=== PATIENT | male | born 2005 | race Caucasian/White ===

== ENCOUNTER 2023-08-13 11:53 | Emergency (ER) | payer OTHER, SELFPAY ==
[2023-08-13 11:54] VITALS: BP 152/92; PULSE 99; RESP 18; TEMP 36.5; O2SAT 100; BMI 23.1
--- NOTE | 2023-08-13 12:11 | RAD_ITS ---
STUDY: X-RAY CHEST REASON FOR EXAM: Male, 18 years old. Chest Pain TECHNIQUE: PA and lateral views of the chest. COMPARISON: None. FINDINGS: The lungs are clear and expanded. Scattered calcified granulomas. There is no demonstrated pleural abnormality. Normal size heart. Normal mediastinum and angel. Normal visualized pulmonary arteries. Normal visualized aortic arch and descending thoracic aorta. Normal visualized thoracic spine. Normal visualized ribs, clavicles, and shoulders. There is no demonstrated abnormality of the visualized soft tissue structures of the upper abdomen. RAD/Chest PA and Lateral IMPRESSION: Normal x-ray examination of the chest. Electronically Signed: Sanford Bishop MD at 13:01 EDT ,
--- NOTE | 2023-08-13 12:41 | EDS_ITS ---
HPI <Analy Aden RN - Last Filed: 08/13/23 14:49> History of Present Illness Chief Complaint: Chest Other Informant: patient Onset/Context/Timing Onset: Days (6 days) Activity at onset: sudden Timing: Continuous Quality: Positive for Sharp Location: - (Left lower chest) Current Severity: 5/10 Maximum Severity: 5/10 Worsened By: Movement of Arm, Movement of Torso and Palpation Relieved By: Remaining Still Associated Symptoms: Negative for Nausea, Vomiting, Diaphoresis, Dyspnea, Cough, Fever, Lightheadedness or Palpitations Narrative Narrative: Patient is a 18-year-old male with no past medical history who presents to the ED from home for left lower chest pain starting 08/08/2023. Patient denies injury. He reports he was golfing that day. Pain began after golfing. He denies shortness of breath or palpitations. He reports taking Tylenol without relief. He also feels as if something is out of place. Pain is worse with movement and palpation. Patient reports recent travel to [place] via car returning back to [place] on 07/29/2023. He reports being seen by a chiropractor on 08/11/2023 with no relief of symptoms. He denies lightheadedness, dizziness, na usea, vomiting, and diarrhea. Denies radiation of pain. Patient also reports coolness to bilateral hands beginning today. He does report being outside for some time. Prior Similar Symptoms: No Recent Illness/Hospitalization: No CVD Risk Factors: Negative for Hypertension, Diabetes, Hypercholesterolemia, Family History 1' </=55 or Smoking PE Risk Factors: Positive for Recent Travel/Surgery; Negative for Recent Immobilization or Prior DVT or PE PFSH <Analy Aden RN - Last Filed: 08/13/23 14:49> PFSH Medical History no medical history no medical history Home Medications prednisone 10 mg tablet 10 mg PO UD #33 tabs 08/13/23 [Rx Last Taken Unknown] Allergy/AdvReac Type Severity Reaction Status Date / Time No Known Allergies Allergy Verified 08/13/23 11:54 Social History Smoking Status: Never smoker ROS <Analy Aden RN - Last Filed: 08/13/23 14:49> ROS ED Constitutional Constitutional ED: Denies chills, fever(s) or sweats Eyes Eyes: Denies change in vision ENT ENT ED: Reports rhinorrhea and other Details: Patient reports nasal congestion ; Denies sore throat Cardiovascular Cardiovascular: Reports as per HPI; Denies orthopnea, palpitations or racing heartbeat Respiratory/Chest Respiratory/Chest: Denies cough, dyspnea or orthopnea Gastrointestinal Gastrointestinal: Denies abdominal pain, diarrhea, nausea or vomiting Genitourinary Genitourinary ED: Denies dysuria, hematuria or urinary frequency Musculoskeletal Musculoskeletal: Denies arthralgias, back pain or myalgias Integumentary Denies rash Neurologic Neurologic: Denies headache(s), paresthesias or weakness EXAM <Analy Aden RN - Last Filed: 08/13/23 14:49> Physical Exam Narrative Exam Narrative: Patient is awake, alert, cooperative. Const Vital Signs: 08/13/23 11:54 08/13/23 13:54 Temperature 97.7 F L Temperature Source Temporal Pulse Rate 99 92 Respiratory Rate 18 18 Blood Pressure 152/92 H 137/84 H Blood Pressure Mean 112 101 Pulse Ox 100 97 Oxygen Delivery Method Room Air Room Air Positive well nourished and well developed General Appearance ED: well developed and NAD HEENT Reports moist mucous membranes normocephalic Eyes PERRL Neck no lymphadenopathy, supple and no JVD Chest Wall inspection of chest normal Chest Narrative: Tenderness to left lower chest with palpation. Patient describes sharp pain with palpation. Chest: tenderness Resp normal respiratory effort and clear to auscultation bilaterally Auscultation: Negative for rales, rhonchi or wheezes Cardio regular rate, regular rhythm, S1 normal heart sound and S2 normal heart sound Peripheral Pulses: pulses 2+ throughout GI normal to inspection, nondistended, normoactive bowel sounds and soft to palpation Back/Spine no thoracic nor lumbar tenderness Extremity normal to inspection General Extremety ED: Negative for edema General Extremity: Negative for edema Neuro oriented x3 Sensorium / Orientation: awake and alert Motor Exam: strength 5/5 throughout Psych mental status grossly normal Skin no rashes or lesions noted and no wounds Skin Narrative: Bilateral hands cool to touch. Cap refill 3 seconds. <Dr. Era Meraz MD - Last Filed: 08/13/23 15:22> Physical Exam Const Vital Signs: 08/13/23 11:54 08/13/23 13:54 Temperature 97.7 F L Temperature Source Temporal Pulse Rate 99 92 Respiratory Rate 18 18 Blood Pressure 152/92 H 137/84 H Blood Pressure Mean 112 101 Pulse Ox 100 97 Oxygen Delivery Method Room Air Room Air MDM <Analy Aden RN - Last Filed: 08/13/23 14:49> [facility] Narrative Medical decision making narrative: D-dimer ordered to rule out PE. Chest PA and lateral ordered to rule out fractures, dislocation, acute cardiopulmonary process. Lab Data Labs: Laboratory Results - last 24 hr 08/13/23 12:40 D-Dimer Quant (PE/DVT) 0.64 H* Radiography Diagnostic Testing: Clinical Impression(s) from Imaging Studies Chest X-Ray 08/13/23 12:11 IMPRESSION: Normal x-ray examination of the chest. Electronically Signed: Sanford Bishop MD at 13:01 EDT , Chest CTA 08/13/23 13:00 IMPRESSION: Normal CTA chest examination, without a demonstrated pulmonary embolism or arterial dissection. Electronically Signed: Sanford Bishop MD at 14:14 EDT , Differential Diagnosis Chest pain/SOB: pulmonary embolism and pneumonia Management Discussion w/another healthcare provider: Other (Dr Meraz, ED provider) Treatment and Re-Evaluation :: Lab work and imaging reviewed. Chest x-ray shows normal mediastinum, no cardiomegaly, no infiltrates. D-dimer is elevated. Therefore CTA of the chest was ordered to evaluate for pulmonary embolism. CTA negative for pulmonary embolism. Patient diagnosed with pleurisy and will be prescribed prednisone with first dose to be given in the ED. Lab work and imaging reviewed with patient. Patient to follow-up with PCP in 1 week if needed. Patient to return to ED for worsening or concerning symptoms. Patient agreeable with plan and to be discharged home. <Dr. Era Meraz MD - Last Filed: 08/13/23 15:22> [facility] Lab Data Labs: Laboratory Results - last 24 hr 08/13/23 12:40 D-Dimer Quant (PE/DVT) 0.64 H* Radiography Diagnostic Testing: Clinical Impression(s) from Imaging Studies Chest X-Ray 08/13/23 12:11 IMPRESSION: Normal x-ray examination of the chest. Electronically Signed: Sanford Bishop MD at 13:01 EDT , Chest CTA 08/13/23 13:00 IMPRESSION: Normal CTA chest examination, without a demonstrated pulmonary embolism or arterial dissection. Electronically Signed: Sanford Bishop MD at 14:14 EDT , Treatment and Re-Evaluation :: Lab work and imaging reviewed. Chest x-ray shows normal mediastinum, no cardiomegaly, no infiltrates. D-dimer is elevated. Therefore CTA of the chest was ordered to evaluate for pulmonary embolism. CTA negative for pulmonary embolism. Patient diagnosed with pleurisy and will be prescribed prednisone with first dose to be given in the ED. Lab work and imaging reviewed with patient. Patient to follow-up with PCP in 1 week if needed. Patient to return to ED for worsening or concerning symptoms. Patient agreeable with plan and to be discharged home. Patient seen and evaluated with [employer] student. I personally interviewed and examined the patient. I was involved in all aspects of patient's orders, interpretation of results, and treatment. Patient presents secondary left lower chest pain. Symptoms been ongoing for the past 4 to 5 days. He describes a pleuritic type pain in the left lower chest, worse with movement or deep breathing. He denies recent injury. He did have a trip to [place] and back recently. No personal or family history of blood clots. Patient sitting upright in bed no acute distress. Head and neck examination unremarkable. Heart is regular rate and rhythm. Lung sounds are clear. Chest wall reveals mild tenderness to the left lower chest. No overlying skin change. Abdomen is soft and nontender. 2 view chest x-ray per my interpretation reveals no acute rib abnormality. Lungs are clear bilaterally with no evidence of pneumothorax. Radiology interpretation reviewed and agrees. Patient's D-dimer does return slightly elevated at 0.64. He is sent for CTA of the chest which reveals no evidence of pulmonary embolism or infiltrate. Patient be treated with a course of predn isone for pleurisy. Initial dose of prednisone given here with prescription for taper sent to the local pharmacy. Return instructions provided. Discharge Plan Triage Chief Complaint: Chest Other ED Provider: Era Meraz Dx/Rx/DC Orders Clinical Impression: Pleurisy Instructions: ED Pleurisy Prescriptions: New prednisone 10 mg tablet 10 mg PO UD Qty: 33 0RF Rx Instructions: Take 4 tablets daily for 3 days, then 3 tablets daily for 3 days, then 2 tablets daily for 3 days, then 1 tablet a day for 3 days then 1 tablet every other day for 3 doses. Primary Care Provider: Geovany Grande Referrals: Geovany Grande DO [Primary Care Provider] - Activity Restrictions/Additional Instructions: Your lab work is normal. The CT of your chest does not show a blood clot. Take prednisone as prescribed. Follow-up with your primary care doctor in 1 week as needed. Return to ED for worsening or concerning symptoms. Disposition Disposition: Home, Self Care
[2023-08-13 12:59] LABS: D-Dimer Quantitative (DVT/PE) 0.64 FEU/ug/m (0.27-0.49)
--- NOTE | 2023-08-13 13:00 | CT_ITS ---
STUDY: CTA CHEST REASON FOR EXAM: Male, 18 years old. pleuritic CP, elevated d-dimer RADIATION DOSAGE (If Supplied By Facility): CTDIvol = ( 9.22 ) mGy, DLP = ( 322.29 ) mGycm TECHNIQUE: The examination was performed with the intravenous administration of IV 100mL [id number]-[id number]. Post-processing of the angiographic images was performed, with multiplanar reformation and 3D reconstruction. Individualized dose optimization techniques were used for this CT. COMPARISON: Comparison is made with prior chest radiograph done earlier today. FINDINGS: Normal enhancement of the main pulmonary artery and right and left pulmonary arteries. Normal enhancement of the bilateral peripheral pulmonary arteries. There is no demonstrated pulmonary embolism. Normal thoracic aorta and visualized great vessels. There is no demonstrated aortic dissection. Normal heart and pericardium. Normal mediastinum. Normal hilar regions. Normal visualized trachea and bronchi. The lungs are well expanded. Normal pulmonary parenchyma. Normal pleura. Normal chest wall structures. Normal osseous structures. Normal visualized upper abdomen. CT/CTA Chest W/WO Contrast IMPRESSION: Normal CTA chest examination, without a demonstrated pulmonary embolism or arterial dissection. Electronically Signed: Sanford Bishop MD at 14:14 EDT ,
[2023-08-13 13:54] VITALS: BP 137/84; PULSE 92; RESP 18; O2SAT 97
[2023-08-13] MEDS: predniSONE 20 MG Tablet 40 MG PO (15:21)
[2023-08-13 15:25] VITALS: BP 128/73; PULSE 85; PULSE 88; RESP 16; TEMP 36.8; O2SAT 94
== END 2023-08-13 15:27 | disposition home or self-care (01) ==
PROVIDERS: Emergency Provider Emergency Medicine; PCP Family Medicine; Visit Provider Emergency Medicine
DX: R09.1 Pleurisy (principal)
CPT/HCPCS: 71046; 71275; 85379; 99283; J7030; Q9967; A4216